=== PATIENT | female | born 1955 | race Caucasian/White ===

== ENCOUNTER 2017-10-23 19:41 | Emergency (ER) | payer OTHER | END 2017-10-23 19:49 | disposition left against medical advice (07) | LOC: UCEAST 19:41 | DX: S89.92XA Unspecified injury of left lower leg, initial encounter (principal); X58.XXXA Exposure to other specified factors, initial encounter; Y93.9 Activity, unspecified; Z53.21 Procedure and treatment not carried out due to patient leaving prior to being seen by health care provider ==

== ENCOUNTER 2019-03-25 20:00 | Emergency (ER) | payer OTHER ==
[2019-03-25 20:26] VITALS: BP 162/109
--- NOTE | 2019-03-25 21:07 | UC ---
Laceration HPI - HPI Summary HPI Summary: laceration to left index finger about 1.5 hours ago while washing dishes--- patient is unsure of her last tetanus however she does not want it updated tonight-she will anamaria Dr. Romero Wednesday to confirm she is UTD - History Of Current Complaint Chief Complaint: UCLaceration Stated Complaint: FINGER LACERATION Time Seen by Provider: 03/25/19 20:57 Hx Obtained From: Patient Laceration Location: Finger - left index finger Mechanism Of Injury: Sharp Trauma Onset/Duration: Sudden Onset Pain Intensity: 4 Pain Scale Used: 0-10 Numeric Aggravating Factors: Nothing - Allergies/Home Medications Allergies/Adverse Reactions: Allergies Allergy/AdvReac Type Severity Reaction Status Date / Time No Known Allergies Allergy Verified 03/25/19 20:26 PMH/Surg Hx/FS Hx/Imm Hx Previously Healthy: Yes - Surgical History Surgical History: Yes Surgery Procedure, Year, and Place: - Family History Known Family History: Positive: None - Social History Occupation: Retired Lives: With Family Alcohol Use: Daily Alcohol Amount: 1 glass wine Substance Use Type: None Smoking Status (MU): Never Smoked Tobacco - Immunization History Most Recent Tetanus Shot: thinks within last 5 years Review of Systems All Other Systems Reviewed And Are Negative: Yes Constitutional: Positive: Negative Skin: Positive: Other - v shaped laceration left index finger pad--well approximated no bleeding Eyes: Positive: Negative ENT: Positive: Negative Respiratory: Positive: Negative Cardiovascular: Positive: Negative Gastrointestinal: Positive: Negative Genitourinary: Positive: Negative Motor: Positive: Negative Neurovascular: Positive: Negative Musculoskeletal: Positive: Negative Neurological: Positive: Negative Psychological: Positive: Negative Is Patient Immunocompromised?: No Physical Exam Triage Information Reviewed: Yes Appearance: Well-Appearing, No Pain Distress, Well-Nourished Vital Signs: Initial Vital Signs Temp 98.1 F 03/25/19 20:21 Pulse 108 03/25/19 20:21 Resp 18 03/25/19 20:21 BP 162/109 03/25/19 20:21 Pulse Ox 97 03/25/19 20:21 Vital Signs Reviewed: Yes Eye Exam: Normal Eyes: Positive: Conjunctiva Clear ENT Exam: Normal ENT: Positive: Normal ENT inspection, Hearing grossly normal. Negative: Trismus , Muffled voice, Hoarse voice Dental Exam: Normal Neck exam: Normal Neck: Positive: Supple, Nontender Respiratory Exam: Normal Respiratory: Positive: Chest non-tender, No respiratory distress, No accessory muscle use Cardiovascular Exam: Normal Cardiovascular: Positive: RRR, Pulses Normal, Brisk Capillary Refill Musculoskeletal Exam: Normal Musculoskeletal: Positive: Strength Intact, ROM Intact, No Edema Neurological Exam: Normal Neurological: Positive: Alert, Muscle Tone Normal Psychological Exam: Normal Psychological: Positive: Normal Response To Family Skin: Positive: Other - v shaped laceration left index finger distaly Laceration Repair - Laceration Repair 1 Description: Irregular Laceration Size After Repair: Length (cm) - 0.8, Width (mm) - 1, Depth (mm) - 1 Modified For Repair: No Cleansing Completed Via Routine Prep: Yes Irrigation With Pressure Irrigation Device: Yes Closure Material: Skin Adhesive Re-Evaluation - Re-Evaluation First Eval Change: Improved - well approximated Laceration Course/Dx - Course/Dx Course Of Treatment: d/c tp home instruction for f/u care---will follow bp and date of last tetanus with Dr. Romero on Wednesday - Diagnosis Provider Diagnosis: Laceration of left index finger, Hypertension screen Discharge ED - Sign-Out/Discharge Documenting (check all that apply): Patient Departure All imaging exams completed and their final reports reviewed: No Studies - Discharge Plan Condition: Stable Disposition: HOME Patient Education Materials: Hypertension (ED), Skin Adhesive Care (ED) Referrals: Chester Romero MD [Primary Care Provider] - (call to have bp rechecked and confirm date of last tetanus) - Billing Disposition and Condition Condition: STABLE Disposition: Home - Attestation Statements Provider Attestation: Pt not seen by me I was available for consult chart reviewed DAVID
== END 2019-03-25 21:16 | disposition home or self-care (01) ==
LOC: UCEAST 20:00
DX: S61.211A Laceration without foreign body of left index finger without damage to nail, initial encounter (principal); Z01.30 Encounter for examination of blood pressure without abnormal findings; X58.XXXA Exposure to other specified factors, initial encounter; Y93.G1 Activity, food preparation and clean up; Y92.9 Unspecified place or not applicable
CPT/HCPCS: 12001; 99212; G0463